=== PATIENT | male | born 1980 | race Caucasian/White ===

== ENCOUNTER 2021-05-10 00:18 | Emergency (ER) | payer OTHER ==
[~2021-05-10] VITALS: Ht 185.4 cm; Wt 117.9 kg
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
[2021-05-10 01:19] LABS: ABSOLUTE NEUTROPHILS 4.1 thou/uL (1.4-8.2); BASOPHILS 0.5 % (0.0-2.0); EOSINOPHILS 3.2 % (0.0-3.0); HEMATOCRIT 44.4 % (42.0-52.0); HEMOGLOBIN 14.8 gm/dL (14.0-18.0); LYMPHOCYTES 21.5 % (24.0-44.0); MCH 29.4 pg (26.0-34.0); MCHC 33.2 g/dL (28.0-37.0); MCV 88.5 fL (80.0-100.0); MONOCYTES 4.7 % (1.0-8.0); PLATELET COUNT 184 thou/uL (150-400); POLYS 70.1 % (36.0-66.0); RBC 5.02 mil/uL (4.50-6.00); RDW 13.1 % (10.5-14.5); WBC 5.8 thou/uL (4.0-11.0)
[2021-05-10 01:28] LABS: CALCIUM 8.7 mg/dL (8.5-10.1); CREATININE 0.9 mg/dL (0.7-1.3); POTASSIUM 3.7 mmol/L (3.5-5.1)
[2021-05-10 01:35] LABS: ALBUMIN 3.8 g/dL (3.4-5.0); TOTAL BILIRUBIN 0.3 mg/dL (0.2-1.0); TOTAL PROTEIN 7.4 g/dL (6.4-8.2)
[2021-05-10 04:57] VITALS: BP 132/67
--- NOTE | 2021-05-10 07:27 | EKG ---
[address] [address] ELECTROCARDIOGRAM REPORT Name: DONTA WALDRON Room #: DEP NEHA Hou#: [id number] Admission: 05/10/21 Attend Phys: Discharge: 05/10/21 Date of : 82 Report #: [id number] [facility] ED Test Date: 2021-05-10 Test Time: 02:12:09 Pat Name: DONTA WALDRON Department: Room: Gender: Band Director: KG : 1980 Requested By: Juliet Mitchell Order Number: [id number] MD: Larry Kenny Measurements Intervals Alvin Rate: 80 P: 2 PA: 184 QRS: 0 QRSD: 125 T: 4 QT: 404 QTc: 466 Interpretive Statements Sinus rhythm IVCD, consider atypical RBBB No previous ECG available for comparison Electronically Signed On 05-10-2021 7:27:14 [employer] HOUSING [employer]NAGER by Larry Kenny [email or web address] <ELECTRONICALLY SIGNED> By: Larry Kenny MD, [facility] 05/10/21726 1 1 Larry Kenny MD, FACC /EPI
== END 2021-05-10 05:30 | disposition home or self-care (01) ==
LOC: ER 00:18
PROVIDERS: Emergency Medicine
DX: U07.1 COVID-19 (principal); R07.89 Other chest pain; I25.2 Old myocardial infarction; Z88.0 Allergy status to penicillin; Z88.2 Allergy status to sulfonamides